=== PATIENT | male | born 1990 | race Hispanic/Latino ===

== ENCOUNTER 2021-09-15 19:55 | Emergency (ER) | payer OTHER ==
[~2021-09-15] VITALS: Ht 172.7 cm; Wt 139.7 kg
[2021-09-15 19:56] VITALS: BP 151/96
== END 2021-09-15 21:40 | disposition left against medical advice (07) ==
LOC: EDH 19:55
DX: Z53.21 Procedure and treatment not carried out due to patient leaving prior to being seen by health care provider (principal)

== ENCOUNTER 2023-12-14 10:56 | Emergency (ER) | payer OTHER ==
[~2023-12-14] VITALS: Ht 170.2 cm; Wt 143.8 kg
[2023-12-14] MEDS ORDERED: CLONIDINE HCL 0.3 MG TABLET PO ONE (11:30)
[2023-12-14 11:36] LABS: BASOPHILS # (AUTO) 0.07 K/uL (0.00-0.20); BASOPHILS % (AUTO) 0.6 % (0.0-5.0); EOSINOPHILS # (AUTO) 0.16 K/uL (0.00-0.70); EOSINOPHILS % (AUTO) 1.4 % (0.0-8.0); HEMATOCRIT 50.8 % (42-54); IMMATURE GRANULOCYTE ABSOLUTE 0.05 K/uL (0-1); LYMPHOCYTES # (AUTO) 2.4 K/uL (1.0-4.8); LYMPHOCYTES % (AUTO) 21.9 % (21.0-51.0); MEAN CORPUSCULAR HGB CONC 32.9 g/dL (32.0-36.0); MEAN CORPUSCULAR VOLUME 79.1 fL (79-99); MONOCYTES # (AUTO) 0.9 K/uL (0.1-1.0); MONOCYTES % (AUTO) 7.7 % (3.0-13.0); NEUTROPHILS # (AUTO) 7.5 K/uL (1.8-7.7); NEUTROPHILS % (AUTO) 67.9 % (40.0-77.0); PLATELET COUNT (AUTO) 401 K/uL (130-400); RED BLOOD CELL COUNT(AUTO) 6.42 MIL/uL (4.50-6.20); RED CELL DISTRIBUTION WIDTH 13.8 % (11.0-15.5); WHITE BLOOD COUNT (AUTO) 11.1 K/uL (4.8-10.8)
[2023-12-14] MEDS: CLONIDINE HCL 0.2 MG TABLET PO ONE (11:40)
[2023-12-14 12:09] LABS: CREATININE 1.4 mg/dL (0.5-1.5); POTASSIUM 3.3 mmol/L (3.5-5.1)
[2023-12-14 12:25] VITALS: BP 156/114; PULSE 94; RESP 20; O2SAT 97
[2023-12-14] MEDS ORDERED: CLON0.2T PO (12:52)
[2023-12-14] MEDS ORDERED: IBUP-2077 PO (12:52)
[2023-12-14] MEDS ORDERED: CLIN-141 PO (12:52)
[2023-12-14] MEDS ORDERED: METF-446 PO (12:52)
[2023-12-14] MEDS: KCL 20 MEQ ERTAB PO ONE (13:27)
[2023-12-14] MEDS: IBUPROFEN 800 MG TAB PO ONE (13:27)
== END 2023-12-14 13:46 | disposition home or self-care (01) ==
LOC: EDH 10:56
DX: L03.114 Cellulitis of left upper limb (principal); I10 Essential (primary) hypertension; E11.65 Type 2 diabetes mellitus with hyperglycemia; E66.9 Obesity, unspecified; Z79.84 Long term (current) use of oral hypoglycemic drugs; Z88.0 Allergy status to penicillin
CPT/HCPCS: 36415; 80048; 85025